=== PATIENT | female | born 1980 | race Caucasian/White ===

== ENCOUNTER 2018-08-21 22:16 | Emergency (ER) | payer OTHER ==
[2018-08-21] MEDS ORDERED: METHYLPREDNISOLONE INJ 125 MG/2 ML SDV IV ONE (22:51)
[2018-08-21] MEDS ORDERED: EPINEPHRINE INJ/PF 1 MG/1 ML AMPULE IM ONE (22:51)
[2018-08-21] MEDS ORDERED: FAMOTIDINE INJ/PF 20 MG/2 ML SDV IV ONE (22:51)
[2018-08-21] MEDS ORDERED: DIPHENHYDRAMINE HCL 50 MG/ML VIAL IV ONE (22:51)
--- NOTE | 2018-08-21 22:57 | ER Document Report ---
ED Allergic Reaction - General Chief Complaint: Allergic Reaction Stated Complaint: POSSIBLE ALLERGIC REACTION Time Seen by Provider: 08/21/18 22:46 Notes: Patient is a 38-year-old female that comes to the emergency department for chief complaint of allergic reaction. She states she was running outside after having eaten at a [employer] restaurant when she started breaking out into her itchy rash over her arms, back, abdomen. She states she started getting a tight feeling in her throat and vague shortness of breath. She denies difficulty swallowing. She denies history of the same. She took Zyrtec at home and came to the emergency department. She takes no daily medications. LMP within the past month. She denies any medical history. TRAVEL OUTSIDE OF THE [place] IN LAST 30 DAYS: No - Related Data Allergies/Adverse Reactions: No Known Allergies Allergy (Unverified 08/21/12 06:52) Past Medical History - General Information source: Patient - Social History Smoking Status: Never Smoker Chew tobacco use (# tins/day): No Frequency of alcohol use: None Drug Abuse: None Lives with: Family Family History: Reviewed & Not Pertinent Patient has suicidal ideation: No Patient has homicidal ideation: No - Medical History Medical History: Negative Neurological Medical History: Denies: Hx Seizures Endocrine Medical History: Reports: Hx Hypothyroidism - hypo- on meds this preg. Denies: Hx Hyperthyroidism Renal/ Medical History: Denies: Hx Peritoneal Dialysis GI Medical History: Denies: Hx Gastroesophageal Reflux Disease, Hx Hiatal Hernia, Hx Ulcer Past Surgical History: Reports: Hx Section - 2. Denies: Hx Hysterectomy, Hx Pacemaker - Immunizations Hx Diphtheria, Pertussis, Tetanus Vaccination: Yes - given today Review of Systems - Review of Systems Constitutional: No symptoms reported EENT: See HPI Cardiovascular: No symptoms reported Respiratory: No symptoms reported Gastrointestinal: No symptoms reported Genitourinary: No symptoms reported Female Genitourinary: No symptoms reported Musculoskeletal: No symptoms reported Skin: See HPI Hematologic/Lymphatic: No symptoms reported Neurological/Psychological: No symptoms reported Physical Exam - Vital signs Vitals: Temp Pulse Resp BP Pulse Ox 97.7 F 94 20 126/83 H 99 08/21/18 22:21 08/21/18 22:21 08/21/18 22:21 08/21/18 22:21 08/21/18 22:21 - Notes Notes: GENERAL: Alert, interacts well. No acute distress. HEAD: Normocephalic, atraumatic. EYES: Pupils equal, round, and reactive to light. Extraocular movements intact. ENT: Oral mucosa moist, tongue midline. Oropharynx unremarkable. Airway patent. No overt soft tissue swelling in the oropharynx. Nares patent, no nasal septal hematoma, TM's intact. NECK: Full range of motion. Supple. Trachea midline. LUNGS: Clear to auscultation bilaterally, no wheezes, rales, or rhonchi. No respiratory distress. HEART: Regular rate and rhythm. No murmur ABDOMEN: Soft, non-tender. Non-distended. Bowel sounds present in all 4 quadrants. GENITOURINARY: Deferred EXTREMITIES: Moves all 4 extremities spontaneously. No edema, normal radial and dorsalis pedis pulses bilaterally. No cyanosis. BACK: no cervical, thoracic, lumbar midline tenderness. No saddle anesthesia, normal distal neurovascular exam. NEUROLOGICAL: Alert and oriented x3. Normal speech. [cranial nerves II through XII grossly intact]. PSYCH: Normal affect, normal mood. SKIN: Scattered urticaria noted mainly over the mid to lower abdomen, also m inimally on the arms over the medial aspect. Also noted over the neck Course - Re-evaluation Re-evalutation: Patient with obvious urticaria mainly over the abdomen and over the proximal arms, slightly on the neck. No edema is noted at the back of the throat, airway is still patent, patient is not in any distress. Patient still has a tightness in the back of her throat sensation. No wheezes on exam. No nausea or vomiting. Giving epinephrine, Solu-Medrol, antihistamines, placing on monitor, will closely reevaluate. Reevaluated patient within 15 minutes. Rash is fading, no additional symptoms. After 30 minutes throat sensation almost completely resolved. Rash is faded and almost completely resolved. Patient monitored for over 2-1/2 hours. Rashes always completely resolved, no additional symptoms reported. Patient is requesting to go home. Patient will be discharged because symptoms have only improved, there have been no rebound symptoms, she had no airway difficulties. Patient given very strict return precautions. Given epinephrine pen, antihistamines. Patient states understanding and agreement with plan. - Vital Signs Vital signs: Temp Pulse Resp BP Pulse Ox 98.3 F 94 15 106/64 97 08/22/18 01:40 08/21/18 22:21 08/22/18 01:01 08/22/18 01:01 08/22/18 01:01 Discharge - Discharge Clinical Impression: Rash Allergic reaction Qualifiers: Encounter type: initial encounter Qualified Code(s): T78.40XA - Allergy, unspecified, initial encounter Condition: Stable Disposition: HOME, SELF-CARE Additional Instructions: Your evaluation was consistent with anaphylaxis, a severe allergic reaction. Take antihistamines as prescribed for 1 week. Follow-up with primary care for additional management. If you develop any concerning symptoms, swelling of the throat, swelling of the face, swelling of the tongue, difficulty breathing, or any other concerning symptoms, take the epinephrine pen and return immediately to the emergency department. Prescriptions: Cetirizine HCl [Zyrtec 10 mg Tablet] 1 tab PO DAILY #30 tablet Epinephrine [Epipen 2-Tristin] 0.3 mg IM ASDIR PRN #1 packet PRN Reason: Famotidine [Pepcid 20 mg Tablet] 20 mg PO DAILY #12 tablet Forms: Return to Work Referrals: RITA BUSBY MD [Primary Care Provider] - Follow up as needed
[2018-08-22 01:20] VITALS: BP 106/64
== END 2018-08-22 01:44 | disposition home or self-care (01) ==
LOC: ER 22:16
DX: T78.40XA Allergy, unspecified, initial encounter (principal); R21 Rash and other nonspecific skin eruption; X58.XXXA Exposure to other specified factors, initial encounter
CPT/HCPCS: 99283; 96372; 96374; 96375; J1200; J0171; J2930; S0028